=== PATIENT | male | born 1965 | race Caucasian/White ===

== ENCOUNTER 2019-02-10 23:32 | Observation (INO) ==
--- NOTE | 2019-02-10 23:50 | Emergency Department Note ---
Disposition Clinical Impression: Atrial fibrillation with RVR Disposition: Admitted As Inpatient Condition: Good Time of Disposition: 06:14 General Adult HPI - General Chief complaint: ED Chest Pain Stated complaint: CP Time Seen by Provider: 02/10/19 23:46 Source: patient Limitations: no limitations - History of Present Illness Pain Scale: 9 - Related Data Allergies Allergy/AdvReac Type Severity Reaction Status Date / Time Penicillins Allergy Hives Verified 02/11/19 00:15 Past Medical History - Past Medical History Medical history: Reports: hypertension Psychiatric history: Reports: no psych history - Social History Smoking Status: Current every day smoker Smokeless Tobacco Status: No Alcohol use: Reports: heavy Drug use: Reports: none Physical Exam - General Limitations: no limitations General appearance: alert, anxious Course Vital Signs Temperature 98.2 F 02/10/19 23:34 Pulse Rate 97 02/10/19 23:34 Respiratory Rate 22 02/10/19 23:34 Blood Pressure 118/76 02/10/19 23:34 O2 Sat by Pulse Oximetry 98 02/10/19 23:34 Temperature 98.2 F 02/10/19 23:34 Pulse Rate 129 02/11/19 02:41 Respiratory Rate 18 02/11/19 06:01 Blood Pressure 143/92 02/11/19 06:01 O2 Sat by Pulse Oximetry 98 02/11/19 01:26 Oxygen Delivery Oxygen Delivery Room Air Medical Decision Making - Lab Data Result diagrams: 02/11/19 00:00 02/11/19 00:00 Lab Results 02/11/19 02/11/19 02/11/19 Range/Units 00:00 00:00 00:00 WBC 10.9 (4.3-11.1) K/mcL RBC 4.86 (4.19-5.50) M/mcL Hgb 17.5 H (12.9-16.9) g/dL Hct 47.7 (37.5-50.1) % MCV 98.1 (83.0-100.0) fL MCH 36.0 H (28.0-33.3) pg MCHC 36.7 H (31.6-35.5) g/dL RDW 12.1 (11.5-14.5) % Plt Count 186 (140-400) K/mcL MPV 9.9 (9.4-12.4) fL Immature Gran % 0.4 (0-4) % Seg Neutrophils % 77.4 % Lymphocytes % 12.0 % Monocytes % 8.9 % Eosinophils % 0.2 % Basophils % 1.1 % Neutrophils # 8.4 (1.6-8.9) K/mcL Lymphocytes # 1.3 (0.6-4.6) K/mcL Monocytes # 1.0 (0.0-1.3) K/mcL Eosinophils # 0.0 (0.0-0.6) K/mcL Basophils # 0.1 (0.0-0.2) K/mcL PT 10.9 (9.4-12.1) Seconds INR 1.0 D-Dimer 563 H (0-500) ng/mLFEU Heparin Anti-Xa, Unfract (0.30-0.70) IU/mL Sodium 134 L (136-145) mEq/L Potassium 3.6 (3.5-5.1) mEq/L Chloride 96 L (98-107) mEq/L Carbon Dioxide 19 L (23-29) mEq/L BUN 7 (6-20) mg/dL Creatinine 0.69 L (0.70-1.30) mg/dL Est GFR ( Amer) > 60 (> 60) Est GFR (Non-Af Amer) > 60 (> 60) BUN/Creatinine Ratio 10 (6-26) Glucose 166 H (70-105) mg/dL Calculated Osmolality 280 (280-300) Calcium 9.8 (8.6-10.3) mg/dL Magnesium 1.3 L (1.6-2.6) mg/dL Total Bilirubin 1.7 H (0.3-1.0) mg/dL AST 102 H (13-39) Units/L ALT 51 (7-52) Units/L Alkaline Phosphatase 90 (34-104) Units/L Troponin I 0.03 (< 0.04) ng/mL Serum Total Protein 7.6 (6.4-8.9) g/dL Albumin 4.4 (3.5-5.7) g/dL Globulin 3.2 (2.4-3.5) g/dL Albumin/Globulin Ratio 1.4 (1.1-2.2) TSH (0.340-5.600) mcIU/mL Specimen Rejected 02/11/19 02/11/1902/11/19 Range/Units 03:11 03:31 03:31 WBC (4.3-11.1) K/mcL RBC (4.19-5.50) M/mcL Hgb (12.9-16.9) g/dL Hct (37.5-50.1) % MCV (83.0-100.0) fL MCH (28.0-33.3) pg MCHC (31.6-35.5) g/dL RDW (11.5-14.5) % Plt Count (140-400) K/mcL MPV (9.4-12.4) fL Immature Gran % (0-4) % Seg Neutrophils % % Lymphocytes % % Monocytes % % Eosinophils % % Basophils % % Neutrophils # (1.6-8.9) K/mcL Lymphocytes # (0.6-4.6) K/mcL Monocytes # (0.0-1.3) K/mcL Eosinophils # (0.0-0.6) K/mcL Basophils # (0.0-0.2) K/mcL PT 10.8 (9.4-12.1) Seconds INR 1.0 D-Dimer (0-500) ng/mLFEU Heparin Anti-Xa, Unfract 0.05 L (0.30-0.70) IU/mL Sodium (136-145) mEq/L Potassium (3.5-5.1) mEq/L Chloride (98-107) mEq/L Carbon Dioxide (23-29) mEq/L BUN (6-20) mg/dL Creatinine (0.70-1.30) mg/dL Est GFR ( Amer) (> 60) Est GFR (Non-Af Amer) (> 60) BUN/Creatinine Ratio (6-26) Glucose (70-105) mg/dL Calculated Osmolality (280-300) Calcium (8.6-10.3) mg/dL Magnesium (1.6-2.6) mg/dL Total Bilirubin (0.3-1.0) mg/dL AST (13-39) Units/L ALT (7-52) Units/L Alkaline Phosphatase (34-104) Units/L Troponin I (< 0.04) ng/mL Serum Total Protein (6.4-8.9) g/dL Albumin (3.5-5.7) g/dL Globulin (2.4-3.5) g/dL Albumin/Globulin Ratio (1.1-2.2) TSH 2.007 (0.340-5.600) mcIU/mL Specimen Rejected MCV Delta Critical Care Time Critical Care Time: Yes Total Critical Care Time: 30 Attestation: The high probability of a clinically significant, sudden or life threatening deterioration of the [] system(s) required my full and direct attention, intervention and personal management. The aggregate critical care time was [] minutes. This time is in addition to time spent performing reported procedures but includes the following: [] Data Review and interpretation [] Patient assessment and monitoring of vital signs [] Documentation [] Medication orders and management Attestation Statement - Attestation Attestation: I reviewed the residents documentation and agree with the residents assessment and plan of care. I have personally had face to face time with the patient. (Brief History, Brief Exam, and MDM) I personally supervised and was present for the kurtz/critical portions of the following procedures completed by the resident: (add procedures performed here). [id number] time provided I attest to supervising the resident physician's interpretation of ECG Patient arrives complaining of chest pain described as a heaviness across his chest over the past 45 minutes. He does admit to drinking alcohol intermittently heavily but states he does not feel as if he is withdrawing from alcohol. His ECG at triage shows a narrow complex tachycardia which is irregularly irregular.
--- NOTE | 2019-02-11 00:04 | Emergency Department Note ---
Disposition Clinical Impression: Atrial fibrillation with RVR Disposition: Admitted As Inpatient Condition: Good Time of Disposition: 03:27 General Adult HPI - General Chief complaint: ED Chest Pain Stated complaint: CP Time Seen by Provider: 02/10/19 23:46 Source: patient Limitations: no limitations Nursing Notes Reviewed: Yes Vital Signs Reviewed: Yes - History of Present Illness HPI Narrative: Patient is a 53-year-old male who is presenting with chest pain and tightness for the last 2 hours. States that he was sitting on his bed at home at the time. Chest pain is in the center of his chest and is described as a strong fracture. Pain does not radiate anywhere else. Patient has not tried any medications to help with the pain. Patient has been diaphoretic. Does not worsen with exertion. He endorses nausea but no vomiting. Patient is a alcoholic and drinks about a half of a fifth of vodka a day. Last drink was roughly a day ago. Never been in withdrawal before. No history of arrhythmias in the past. Pain Scale: 9 - Related Data Allergies Allergy/AdvReac Type Severity Reaction Status Date / Time Penicillins Allergy Hives Verified 02/11/19 00:15 All systems ED: reviewed and negative except as stated. Review of Systems: As Per HPI Constitutional: Denies: fever, chills, weakness Eyes: Denies: eye pain, eye discharge, vision change ENT ED: Denies: ear pain, throat pain, dental pain Cardiovascular: Reports: chest pain, palpitations. Denies: dyspnea on exertion Respiratory: Denies: cough, dyspnea, wheezes Gastrointestinal: Denies: abdominal pain, nausea, vomiting Genitourinary: Denies: urgency, dysuria, frequency Musculoskeletal: Denies: back pain, neck pain, joint swelling Integumentary: Denies: rash, abrasion, lesions Neurological: Denies: headache, weakness, numbness Psychiatric: Denies: anxiety, depression, suicidal thoughts Endocrine: Denies: fatigue, heat or cold intolerance, polydipsia Past Medical History - Past Medical History Attestation: Yes The following information was validated with the patient. Source: patient Medical history: Reports: hypertension Psychiatric history: Reports: no psych history - Social History Smoking Status: Current every day smoker Smokeless Tobacco Status: No Alcohol use: Reports: heavy Drug use: Reports: none Physical Exam GEN: Nephrotic, moderate distress, conversant. HEENT: NC, AT. MMM. EOMI, clear conjunctiva, oropharynx clear. NECK: Supple without lymphadenopathy. No stiffness or restricted ROM. HEART: Tachycardic rate and irregular rhythm, normal S1/S1, no m/r/g LUNGS: CTAB, moving air well. No crackles or wheezes are heard. ABDOMEN: Soft, nontender, nondistended with good bowel sounds heard. BACK: No CVAT, no obvious deformity. EXTREMITIES: Without cyanosis, clubbing or edema. NEUROLOGICAL: Grossly nonfocal. Alert and oriented, moving all 4 extremities. CN not formally tested but appear grossly intact. Observed to ambulate with normal gait. Skin: Warm and dry without any rash. - General Limitations: no limitations General appearance: alert, anxious Course Course Narrative: He was seen and examined. Labs are ordered. EKG and chest x-ray. Started on Cardizem drip. Vital Signs Temperature 98.2 F 02/10/19 23:34 Pulse Rate 97 02/10/19 23:34 Respiratory Rate 22 02/10/19 23:34 Blood Pressure 118/76 02/10/19 23:34 O2 Sat by Pulse Oximetry 98 02/10/19 23:34 Temperature 98.2 F 02/10/19 23:34 Pulse Rate 129 02/11/19 02:41 Respiratory Rate 18 02/11/19 02:41 Blood Pressure 140/82 02/11/19 02:41 O2 Sat by Pulse Oximetry 98 02/11/19 01:26 Oxygen Delivery Oxygen Delivery Room Air Medical Decision Making - [facility] Narrative Medical decision making narrative: Patient is a 53-year-old male who presents with A. fib with RVR. Differential for etiologies include infection, ischemia, alcohol use, alcohol withdrawal, hyperthyroidism. Patient initially was in A. fib with RVR with a rate of 170. Patient was rate controlled with a Cardizem drip was titrated to a rate of 10 mg/h. Rate decreased to 1:30 to 140s. Patient was then given Lopressor which brought her rate down to 90s to 100s. Throughout the duration of stay patient has been stable with no hypotension. Labs remarkable for a d-dimer of 563. A C T PE was performed which showed no evidence of blood clot. He had a normal troponin and no ischemic changes on EKG. Low suspicion for cardiac ischemia. Patient does endorse drinking heavily, last drink was approximately 24 hours ago. Has never been in withdrawal, however cannot be ruled out as possible etiology for A. fib. Patient has no signs of infection, he does not have a white count, normal chest x-ray. A TSH was ordered for possible hyperthyroidism. Plan is to admit patient for further management and evaluation. Patient was accepted by the hospitalist for admission. Potassium and magnesium was repleted. Low-dose heparin drip was started for anticoagulation. - Medical Records Medical records reviewed: Yes I reviewed the patient's medical records. - Lab Data Lab results reviewed: Yes I reviewed the patient's lab results. Result diagrams: 02/11/19 00:00 02/11/19 00:00 Lab Results 02/11/19 02/11/19 02/11/19 Range/Units 00:00 00:00 00:00 WBC 10.9 (4.3-11.1) K/mcL RBC 4.86 (4.19-5.50) M/mcL Hgb 17.5 H (12.9-16.9) g/dL Hct 47.7 (37.5-50.1) % MCV 98.1 (83.0-100.0) fL MCH 36.0 H (28.0-33.3) pg MCHC 36.7 H (31.6-35.5) g/dL RDW 12.1 (11.5-14.5) % Plt Count 186 (140-400) K/mcL MPV 9.9 (9.4-12.4) fL Immature Gran % 0.4 (0-4) % Seg Neutrophils % 77.4 % Lymphocytes % 12.0 % Monocytes % 8.9 % Eosinophils % 0.2 % Basophils % 1.1 % Neutrophils # 8.4 (1.6-8.9) K/mcL Lymphocytes # 1.3 (0.6-4.6) K/mcL Monocytes # 1.0 (0.0-1.3) K/mcL Eosinophils # 0.0 (0.0-0.6) K/mcL Basophils # 0.1 (0.0-0.2) K/mcL PT 10.9 (9.4-12.1) Seconds INR 1.0 D-Dimer 563 H (0-500) ng/mLFEU Sodium 134 L (136-145) mEq/L Potassium 3.6 (3.5-5.1) mEq/L Chloride 96 L (98-107) mEq/L Carbon Dioxide 19 L (23-29) mEq/L BUN 7 (6-20) mg/dL Creatinine 0.69 L (0.70-1.30) mg/dL Est GFR ( Amer) > 60 (> 60) Est GFR (Non-Af Amer) > 60 (> 60) BUN/Creatinine Ratio 10 (6-26) Glucose 166 H (70-105) mg/dL Calculated Osmolality 280 (280-300) Calcium 9.8 (8.6-10.3) mg/dL Magnesium 1.3 L (1.6-2.6) mg/dL Total Bilirubin 1.7 H (0.3-1.0) mg/dL AST 102 H (13-39) Units/L ALT 51 (7-52) Units/L Alkaline Phosphatase 90 (34-104) Units/L Troponin I 0.03 (< 0.04) ng/mL Serum Total Protein 7.6 (6.4-8.9) g/dL Albumin 4.4 (3.5-5.7) g/dL Globulin 3.2 (2.4-3.5) g/dL Albumin/Globulin Ratio 1.4 (1.1-2.2) Specimen Rejected 02/11/19 Range/Units 03:11 WBC (4.3-11.1) K/mcL RBC (4.19-5.50) M/mcL Hgb (12.9-16.9) g/dL Hct (37.5-50.1) % MCV (83.0-100.0) fL MCH (28.0-33.3) pg MCHC (31.6-35.5) g/dL RDW (11.5-14.5) % Plt Count (140-400) K/mcL MPV (9.4-12.4) fL Immature Gran % (0-4) % Seg Neutrophils % % Lymphocytes % % Monocytes % % Eosinophils % % Basophils % % Neutrophils # (1.6-8.9) K/mcL Lymphocytes # (0.6-4.6) K/mcL Monocytes # (0.0-1.3) K/mcL Eosinophils # (0.0-0.6) K/mcL Basophils # (0.0-0.2) K/mcL PT (9.4-12.1) Seconds INR D-Dimer (0-500) ng/mLFEU Sodium (136-145) mEq/L Potassium (3.5-5.1) mEq/L Chloride (98-107) mEq/L Carbon Dioxide (23-29) mEq/L BUN (6-20) mg/dL Creatinine (0.70-1.30) mg/dL Est GFR ( Amer) (> 60) Est GFR (Non-Af Amer) (> 60) BUN/Creatinine Ratio (6-26) Glucose (70-105) mg/dL Calculated Osmolality (280-300) Calcium (8.6-10.3) mg/dL Magnesium (1.6-2.6) mg/dL Total Bilirubin (0.3-1.0) mg/dL AST (13-39) Units/L ALT (7-52) Units/L Alkaline Phosphatase (34-104) Units/L Troponin I (< 0.04) ng/mL Serum Total Protein (6.4-8.9) g/dL Albumin (3.5-5.7) g/dL Globulin (2.4-3.5) g/dL Albumin/Globulin Ratio (1.1-2.2) Specimen Rejected MCV Delta - Radiology Data Radiology results reviewed: Yes I reviewed the patient's radiology results. - EKG Data EKG #1 EKG attestation: Yes I reviewed and interpreted this EKG. EKG results narrative: EKG #1 was obtained at 2338. Interpretation of the EKG shows atrial fibrillation with rapid ventricular response. A ventricular rate of 167. Normal axis. No ST depressions or elevations. No T-wave inversions. No prior EKG available for comparison. EKG #2 was obtained at 2358. Rotation of the EKG again shows redemonstration of atrial fibrillation with RVR. Ventricular rate of 166. No ST depressions or elevations. No T-wave inversions.
[2019-02-11 00:29] LABS: Basophils # 0.1 K/mcL (0.0-0.2); Basophils % 1.1 %; Eosinophils % 0.2 %; Hematocrit 47.7 % (37.5-50.1); Hemoglobin 17.5 g/dL (12.9-16.9); Immature Granulocytes % 0.4 % (0-4); Lymphocytes # 1.3 K/mcL (0.6-4.6); Mean Corpuscular HGB Conc 36.7 g/dL (31.6-35.5); Mean Corpuscular Volume 98.1 fL (83.0-100.0); Mean Platelet Volume 9.9 fL (9.4-12.4); Monocytes % 8.9 %; Neutrophils # 8.4 K/mcL (1.6-8.9); Platelet Count 186 K/mcL (140-400); Red Blood Count 4.86 M/mcL (4.19-5.50); Red Cell Distribution Width 12.1 % (11.5-14.5); Segmented Neutrophils % 77.4 %; White Blood Count 10.9 K/mcL (4.3-11.1)
[2019-02-11 00:38] LABS: Prothrombin Time 10.9 Seconds (9.4-12.1)
[2019-02-11 00:47] LABS: Alanine Aminotransferase 51 Units/L (7-52); Albumin 4.4 g/dL (3.5-5.7); Albumin/Globulin Ratio 1.4 (1.1-2.2); Alkaline Phosphatase 90 Units/L (34-104); Aspartate Amino Transferase 102 Units/L (13-39); Bilirubin,Total 1.7 mg/dL (0.3-1.0); Blood Urea Nitrogen 7 mg/dL (6-20); Calcium 9.8 mg/dL (8.6-10.3); Carbon Dioxide 19 mEq/L (23-29); Chloride 96 mEq/L (98-107); Globulin 3.2 g/dL (2.4-3.5); Glucose 166 mg/dL (70-105); Magnesium 1.3 mg/dL (1.6-2.6); Osmolality,Calculated 280 (280-300); Potassium 3.6 mEq/L (3.5-5.1); Sodium 134 mEq/L (136-145); Total Protein 7.6 g/dL (6.4-8.9); Troponin I 0.03 ng/mL (< 0.04)
[2019-02-11 00:52] LABS: BUN/Creatinine Ratio 10 (6-26); eGFR For African Americans > 60 (> 60); eGFR For Non-African Americans > 60 (> 60)
[2019-02-11] MEDS ORDERED: Isovue-370 500 ML BOTTLE IVP ONE (00:56)
[2019-02-11] MEDS ORDERED: *HR* Metoprolol 5 MG/5 ML VIAL IVP ONE (02:02)
[2019-02-11] MEDS ORDERED: Nicotine 21 MG PATCH.TD24 TD ONE (02:54)
[2019-02-11] MEDS ORDERED: *HR* Heparin 5,000 UNIT/ML VIAL IVP PRN ×2 (03:11)
[2019-02-11] MEDS ORDERED: *HR* Heparin 5,000 UNIT/ML VIAL IVP ONE (03:11)
[2019-02-11 03:52] LABS: Heparin anti-factor XA UFH 0.05 IU/mL (0.30-0.70)
[2019-02-11 03:53] LABS: Prothrombin Time 10.8 Seconds (9.4-12.1)
[2019-02-11] MEDS: Heparin 25,000 UNIT/250 ML D5W 25,000 UNIT/250 ML IV.SOLN IVC SCH (05:20)
[2019-02-11 06:45] LABS: Hematocrit 43.9 % (37.5-50.1); Hemoglobin 15.8 g/dL (12.9-16.9); Mean Corpuscular Hemoglobin 36.3 pg (28.0-33.3); Mean Corpuscular Volume 100.9 fL (83.0-100.0); Mean Platelet Volume 9.7 fL (9.4-12.4); Platelet Count 174 K/mcL (140-400); Red Blood Count 4.35 M/mcL (4.19-5.50); Red Cell Distribution Width 12.2 % (11.5-14.5); White Blood Count 9.7 K/mcL (4.3-11.1)
--- NOTE | 2019-02-11 07:53 | Internal Med History&Physical ---
Date of Encounter: 02/11/19 Time of Encounter: 07:50 Internal Medicine - H&P: HPI Chief complaint: chest pain Admitted From: Home Plans for Post Hospital Care: Home History of present illness: Mr. Millard is a 53 year old male with past medical history of hypertension, heavy alcohol use came in with chest pain that lasted for about 2 hours started yesterday. Patient was resting and watching TV was started. Precordial in location nonradiating. Associated palpitations. Characterized as severe intensity. Denies any lightheadedness or dizziness but had some nausea denies any vomiting or sweating. Denies any history of heart attacks in past. Patient admits to using marijuana and has heavy alcohol use but denies any cocaine or amphetamine use or any illicit drug use. Denies any previous similar episode. No significant cardiac history in family practice knowledge. He smokes about a pack a day for the last 40-45 years. Denies history of withdrawal from alcohol when he was off alcohol for about a week last month. Denies any cough, fevers, chills, abdominal pain, back pain bowel or bladder complaints. Patient was evaluated the ER. CTA chest because of elevated d-dimer which was negative for PE or pneumonia. EKG showed atrial fibrillation with RVR with some ST depression. 1st Troponin were negative. Patient was evaluated on the floor. He denied any chest pain. Wanted to eat. Denies any cough, shortness of breath, abdominal pain or back pain. Currently on Cardizem and heparin drip Past Med Surg Social Fam HX - Past Medical History Medical history: hypertension Psychiatric history: no psych history - Past Surgical History Surgical History: no surgical history - Social History Smoking Status: Current every day smoker Packs per day: 1 ppd Smokeless Tobacco Status: No Alcohol use: heavy Drug use: marijuana - Family History Mother Name: Valerie Living Status: Age at : 72 Cause of : rectal cancer Hx Family Cardiac Disorders: No Hx Family Respiratory Disorders: Yes (maternal grandpa emphysema) Hx Family Cancer: Yes (rectal cancer) Hx Family GI Disorders: No Hx Family Genitourinary Disorders: No Hx Family Endocrine Disorder: No Hx Family Musculoskeletal Disorders: No Hx Family Neuromuscular Disorders: No Hx Family Neurologic Disorders: No Hx Family HEENT Disorders: No Hx Family Autoimmune Disorders: No Hx Family Reproductive Disorders: No Hx Family Psychosocial Disorders: No Hx Family Medical Disorders: No Internal Medicine - H&P: Meds Allergy/AdvReac Type Severity Reaction Status Date / Time Penicillins Allergy Hives Verified 02/11/19 00:15 All Systems PM: A 10-system review of systems was performed and is negative for pertinent findings except as documented above in the HPI. - Constitutional Vitals: Temp Pulse Resp BP Pulse Ox 98.3 F 103 12 138/83 96 02/11/19 06:37 02/11/19 06:37 02/11/19 06:37 02/11/19 06:37 02/11/19 06:37 Exam: Constitutional: Vitals as noted. Conversant. No Apparent Distress. Well groomed. No obvious deformities. Eyes : Sclera white, conjunctiva clear, no lid lag, PEARLA. ENT : Grossly normal hearing. Oropharyngeal exam unremarkable. Moist mucus membranes. No JVD, no cervical lymphadenopathy. no thyromegaly or mass. Respiratory : Clear to auscultation bilaterally. No accessory muscle use, rales, rhonchi or wheezes Cardiovascular : tachycardic, irregular, no murmur, gallop, rubs. No chest wall tenderness GI/Abdominal : Soft, Non-tender, Non-distended, normal bowel sounds, no peritoneal signs. no orgenomegaly or mass appreciated. no hernia. Musculoskeletal: no deformity noted. no edema or cyanosis. warm extremities, pulses palpable and symmetrical in UE/LE. no calf tenderness. Neurological: AO X3, CN II-XII grossly intact, grossly normal motor and sensory exam. Skin: No skin rash, lesions or ulcers noted. Internal Med - H&P Results - Labs CBC & Chem 7: 02/11/19 06:34 02/11/19 00:00 Labs: Short CBC 02/11/19 02/11/19 Range/Units 00:00 06:34 WBC 10.9 9.7 (4.3-11.1) K/mcL Hgb 17.5 H 15.8 D (12.9-16.9) g/dL Hct 47.7 43.9 (37.5-50.1) % Plt Count 186 174 (140-400) K/mcL Neutrophils # 8.4 (1.6-8.9) K/mcL BMP 02/11/19 00:00 Sodium 134 L Potassium 3.6 Chloride 96 L Carbon Dioxide 19 L BUN 7 Creatinine 0.69 L Glucose 166 H Calcium 9.8 Cardiac Enzymes 02/11/19 Range/Units 00:00 Troponin I 0.03 (< 0.04) ng/mL Liver Function 02/11/19 Range/Units 00:00 Total Bilirubin 1.7 H (0.3-1.0) mg/dL AST 102 H (13-39) Units/L ALT 51 (7-52) Units/L Alkaline Phosphatase 90 (34-104) Units/L Albumin 4.4 (3.5-5.7) g/dL - EKG Data -: EKG Interpreted by Myself (afib with rvr, ST depression in lateral leads) - Impressions ITS Impressions Chest CTA 02/11/19 00:56 IMPRESSION: No evidence of pulmonary embolism or acute pulmonary abnormality. D/ / Zachariah Rodriguez MD / Zachariah Rodriguez MD Interpreting Provider: Zachariah Rodriguez MD Chest X-Ray 02/11/19 23:48 IMPRESSION: Mild volume overload. D/ / Karl Park / Karl Park Interpreting Provider: Karl Park - Assessment and Plan (1) Atrial fibrillation with RVR Current Visit: Yes Status: Acute Assessment and plan: Patient has new onset A. fib likely related to alcohol use. TSH normal. Continue patient on Cardizem drip. He was started on heparin drip. We will continue for now. Likely will not need long-term anticoagulation. Await echocardiogram. Patient currently appears only one risk factor of hypertension. We will obtain A1c given some hyperglycemia and follow-up echocardiogram report. We will consult cardiology. (2) AA (alcohol abuse) Current Visit: Yes Status: Acute Assessment and plan: We will give thiamine IV and multivitamin Keep patient on CIWA protocol with lorazepam and monitor for withdrawals. (3) Marijuana abuse Current Visit: Yes Status: Acute (4) DVT prophylaxis Current Visit: Yes Status: Acute Assessment and plan: Currently on heparin drip. - Time Spent With Patient Total time spent is greater than 50% in coordination of care (as documented) at patient's floor/unit and/or counseling patient:
[2019-02-11] MEDS ORDERED: *HR* Metoprolol 5 MG/5 ML VIAL IVP PRN (08:21)
[2019-02-11] MEDS ORDERED: Thiamine (B-1) 100 MG in D5% in Water 50 ML IVPB STA (08:28)
[2019-02-11] MEDS ORDERED: *HR* LORazepam 2 MG/ML VIAL IVP PRN (08:31)
[2019-02-11 09:00] LABS: Estimated Average Glucose 128 mg/dl
[2019-02-11] MEDS: Multivit/Ca/Min/Fe/FA 1 TAB TABLET PO SCH (09:25)
--- NOTE | 2019-02-11 11:07 | Cardiology Consult Note ---
<Scott Morrell R - Last Filed: 02/11/19 11:02> Date of Encounter: 02/11/19 Time of Encounter: 11:02 Assessment and Plan (1) Atrial fibrillation with RVR Current Visit: Yes Status: Acute Presented with precordial chest pain and palpitations. Found to be in A-Fib RVR, new diagnosis. Currently on heparin gtt and Cardizem gtt at 12.5mg/hr. HR 100s. BP tolerating/hypertensive. Will add PO BB. [id number] 1 for HTN. Continue heparin gtt for now until TTE results to evaluate EF. (2) Elevated troponin Current Visit: Yes Status: Acute Initial troponin negative, then 0.19. Will check another troponin to determine trend. Troponin elevation in setting of A-Fib RVR. NSTEMI vs. Demand ischemia. Continue heparin gtt. TTE to evaluate structure and function. Further recs pending TTE results. (3) AA (alcohol abuse) Current Visit: Yes Status: Acute Management per primary team. Discussion w patient/family: The assessment and plan as outlined above was discussed with the patient and/or family members who expressed understanding and agreement. All questions were answered. Thank you for involving us in the care of your patient. Please call with any questions. I will discuss all the above with Dr. Resendez and make changes as necessary. History of Present Illness Consult date: 02/11/19 Consult reason: A-Fib RVR, elevated troponin Chief complaint: Palpitations History of present illness: Mr. Millard is a 53 year old male with PMH of hypertension, heavy alcohol use came in with chest pain that lasted for about 2 hours started yesterday. Patient was resting and watching TV was started. Precordial in location nonradiating with associated palpitations. Admites to marijuana and drinking a quarter of a fifth of liquor per day. He smokes 1PPD for the last 40-45 years. CTA chest negative for PE or pneumonia. EKG showed atrial fibrillation with RVR with some ST depression. 1st Troponin were negative, then 0.19. Cardiology consulted for further recs. Currently on heparin gtt and Cardizem gtt at 12.5mg/hr. HR 100s. Past Med Surg Social Fam HX - Past Medical History Medical history: hypertension Psychiatric history: no psych history - Past Surgical History Surgical History: no surgical history - Social History Smoking Status: Current every day smoker Packs per day: 1 ppd Smokeless Tobacco Status: No Alcohol use: heavy Drug use: marijuana - Family History Mother Name: Valerie Living Status: Age at : 72 Cause of : rectal cancer Hx Family Cardiac Disorders: No Hx Family Respiratory Disorders: Yes (maternal grandpa emphysema) Hx Family Cancer: Yes (rectal cancer) Hx Family GI Disorders: No Hx Family Genitourinary Disorders: No Hx Family Endocrine Disorder: No Hx Family Musculoskeletal Disorders: No Hx Family Neuromuscular Disorders: No Hx Family Neurologic Disorders: No Hx Family HEENT Disorders: No Hx Family Autoimmune Disorders: No Hx Family Reproductive Disorders: No Hx Family Psychosocial Disorders: No Hx Family Medical Disorders: No Medications and Allergies Allergy/AdvReac Type Severity Reaction Status Date / Time Penicillins Allergy Hives Verified 02/11/19 00:15 All Systems Review: The remainder of the systems were reviewed and are negative - Cardiovascular Cardiovascular: as per HPI, chest pain at rest, palpitations Physical Examination Vital Signs Temp Pulse Resp BP Pulse Ox 02/11/19 06:37 98.3 F 103 12 138/83 96 02/11/19 06:01 18 143/92 02/11/19 02:41 129 18 140/82 02/11/19 01:26 157 20 138/86 98 02/11/19 00:36 152 20 138/80 96 02/10/19 23:34 98.2 F 97 22 118/76 98 Intake and Output 02/10/19 02/11/19 02/11/19 23:59 07:59 15:59 Intake Total 204 / 733.0 529.0 / 733.0 Output Total 0 / 0 0 / 0 Balance 204 / 733.0 529.0 / 733.0 Intake: IV Fluids 204 / 253.0 49.0 / 253.0 Cardizem 125 MG In 0.9 % Sodium 49.0 / 49.0 Chloride 100 ML @ 5 MG/HR 5 mls/hr IVC CONT CHRISTIN Rx#: [id number] Magnesium Sulfate 1 GM In 0.9 % 204 / 204 Sodium Chloride 100 ML @ 100 mls/hr IVPB ONCE ONE Rx#: [id number] Oral 0 / 480 480 / 480 Output: Urine 0 / 0 0 / 0 Other: Meal Breakfast Percent of Meal Consumed 25% Weight 82.1 kg 74.1 kg Patient Weight 02/11/19 23:59 Weight 74.1 kg General: Conversant, No Apparent Distress HEENT: Atraumatic, Normocephaly, Mucus Membranes Moist Neck: No JVD, Normal carotid pulses Cardiac: Other (irregularly irregular rhythm) Lungs: Normal Breath Sounds, No Wheeze, Rales, Rhonchi Neuro: Alert and responsive, No focal deficits noted Abdomen: Soft, Non-Tender Skin: No rashes noted on visualized skin Musculoskeletal: No Chest Wall Tenderness Extremities: No Clubbing, No Cyanosis, No Edema, Normal Pulses Results 02/11/19 06:34 02/11/19 00:00 Lab Results 02/11/19 02/11/19 02/11/19 00:00 00:00 00:00 WBC 10.9 Hgb 17.5 H Hct 47.7 Plt Count 186 INR 1.0 D-Dimer 563 H Sodium 134 L Potassium 3.6 Chloride 96 L Carbon Dioxide 19 L BUN 7 Creatinine 0.69 L Glucose 166 H Calcium 9.8 Magnesium 1.3 L Total Bilirubin 1.7 H AST 102 H ALT 51 Alkaline Phosphatase 90 Troponin I 0.03 TSH 02/11/19 02/11/19 02/11/19 03:31 03:31 06:34 WBC 9.7 Hgb 15.8 D Hct 43.9 Plt Count 174 INR 1.0 D-Dimer Sodium Potassium Chloride Carbon Dioxide BUN Creatinine Glucose Calcium Magnesium Total Bilirubin AST ALT Alkaline Phosphatase Troponin I TSH 2.007 02/11/19 08:31 WBC Hgb Hct Plt Count INR D-Dimer Sodium Potassium Chloride Carbon Dioxide BUN Creatinine Glucose Calcium Magnesium Total Bilirubin AST ALT Alkaline Phosphatase Troponin I 0.19 H* TSH Short CBC 02/11/19 02/11/19 Range/Units 06:34 00:00 WBC 9.7 10.9 (4.3-11.1) K/mcL Hgb 15.8 D 17.5 H (12.9-16.9) g/dL Hct 43.9 47.7 (37.5-50.1) % Plt Count 174 186 (140-400) K/mcL Neutrophils # 8.4 (1.6-8.9) K/mcL BMP 02/11/19 Range/Units 00:00 Sodium 134 L (136-145) mEq/L Potassium 3.6 (3.5-5.1) mEq/L Chloride 96 L (98-107) mEq/L Carbon Dioxide 19 L (23-29) mEq/L BUN 7 (6-20) mg/dL Creatinine 0.69 L (0.70-1.30) mg/dL Glucose 166 H (70-105) mg/dL Calcium 9.8 (8.6-10.3) mg/dL Cardiac Enzymes 02/11/19 02/11/19 Range/Units 08:31 00:00 Troponin I 0.19 H* 0.03 (< 0.04) ng/mL Liver Function 02/11/19 Range/Units 00:00 Total Bilirubin 1.7 H (0.3-1.0) mg/dL AST 102 H (13-39) Units/L ALT 51 (7-52) Units/L Alkaline Phosphatase 90 (34-104) Units/L Albumin 4.4 (3.5-5.7) g/dL Impressions Chest CTA 02/11/19 00:56 IMPRESSION: No evidence of pulmonary embolism or acute pulmonary abnormality. D/ / Zachariah Rodriguez MD / Zachariah Rodriguez MD Interpreting Provider: Zachariah Rodriguez MD Chest X-Ray 02/11/19 23:48 IMPRESSION: Mild volume overload. D/ / Karl Park / Karl Park Interpreting Provider: Karl Park Active Medications Heparin Sodium (Porcine) (Heparin) 4,000 unit IVP Q6HR PRN PRN Reason: SEE COMMENTS Stop: 08/13/19 03:12 Heparin Sodium (Porcine) (Heparin) 2,000 unit IVP Q6H PRN PRN Reason: SEE COMMENTS Stop: 08/13/19 03:12 Heparin Sodium/Dextrose (Heparin 25,000 Unit/250 Ml D5w) 25,000 unit in 250 mls @ 9.852 mls/hr IVC .Q24H CHRISTIN; Protocol Stop: 08/13/19 03:16 Last Admin: 02/11/19 05:20 Dose: 12 unit/kg/hr, 9.9 mls/hr Documented by: Diltiazem HCl 125 mg/ Sodium (Chloride) 125 mls @ 5 mls/hr IVC CONT CHRISTIN; Protocol Stop: 08/12/19 23:46 Last Infusion: 02/11/19 10:18 Dose: 12.5 mg/hr, 12.5 mls/hr Documented by: Lorazepam (Ativan) 1 mg IVP Q1H PRN PRN Reason: Alcohol Withdrawal Stop: 08/13/19 08:32 Metoprolol Tartrate (Lopressor) 5 mg IVP Q6HR PRN PRN Reason: Heart Rate- High Stop: 08/13/19 08:22 Multivitamins/Calcium (Thera M Plus) 1 tab PO DAILY CHRISTIN; Protocol Stop: 08/13/19 09:01 Last Admin: 02/11/19 09:25 Dose: 1 tab Documented by: - Imaging and Cardiology Echo: pending - EKG Interpretation EKG results cardiology: personally reviewed (A-Fib RVR), other (12 hr tele AVG HR 112, A-Fib) Consult Discharge Plan - Plan Referrals: NONE,PCP [Primary Care Provider] - <Inge Resendez - Last Filed: 02/11/19 15:32> Date of Encounter: 02/11/19 - Attending Attestation I examined this patient and my medical decision-making was reviewed with the INSIDE BARREL LATHE OPERATOR. I agree with the documented findings, disposition and treatment plan as described. Assessment and Plan Discussion w patient/family: The assessment and plan as outlined above was discussed with the patient and/or family members who expressed understanding and agreement. All questions were answered. Thank you for involving us in the care of your patient. Please call with any questions. History of Present Illness History of present illness: Mr. Millard is a 53 year old male All Systems Review: The remainder of the systems were reviewed and are negative Physical Examination Vital Signs, Last 4 Hours Temp Pulse Resp BP Pulse Ox 02/11/19 12:00 98.7 F 100 14 141/90 96 Results 02/11/19 06:34 02/11/19 00:00 Lab Results 02/11/19 02/11/19 02/11/19 00:00 00:00 00:00 WBC 10.9 Hgb 17.5 H Hct 47.7 Plt Count 186 INR 1.0 D-Dimer 563 H Sodium 134 L Potassium 3.6 Chloride 96 L Carbon Dioxide 19 L BUN 7 Creatinine 0.69 L Glucose 166 H Calcium 9.8 Magnesium 1.3 L Total Bilirubin 1.7 H AST 102 H ALT 51 Alkaline Phosphatase 90 Troponin I 0.03 TSH 02/11/19 02/11/19 02/11/19 03:31 03:31 06:34 WBC 9.7 Hgb 15.8 D Hct 43.9 Plt Count 174 INR 1.0 D-Dimer Sodium Potassium Chloride Carbon Dioxide BUN Creatinine Glucose Calcium Magnesium Total Bilirubin AST ALT Alkaline Phosphatase Troponin I TSH 2.007 02/11/19 02/11/19 08:31 13:52 WBC Hgb Hct Plt Count INR D-Dimer Sodium Potassium Chloride Carbon Dioxide BUN Creatinine Glucose Calcium Magnesium Total Bilirubin AST ALT Alkaline Phosphatase Troponin I 0.19 H* 0.17 H* TSH
[2019-02-11] MEDS ORDERED: Perflutren Lipid Microsphere 1.3 ML in 0.9 % Sodium Chloride 8.7 ML IVP ONE (15:03)
[2019-02-11] MEDS ORDERED: Perflutren Lipid Microsphere 2 ML VIAL ONE (15:05)
--- NOTE | 2019-02-11 16:44 | Electrocardiograph Report ---
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
[2019-02-12 02:17] LABS: Alanine Aminotransferase 36 Units/L (7-52); Albumin 3.9 g/dL (3.5-5.7); Albumin/Globulin Ratio 1.3 (1.1-2.2); Alkaline Phosphatase 74 Units/L (34-104); Aspartate Amino Transferase 56 Units/L (13-39); BUN/Creatinine Ratio 14 (6-26); Bilirubin,Total 0.8 mg/dL (0.3-1.0); Blood Urea Nitrogen 9 mg/dL (6-20); Calcium 9.2 mg/dL (8.6-10.3); Carbon Dioxide 26 mEq/L (23-29); Chloride 102 mEq/L (98-107); Globulin 2.9 g/dL (2.4-3.5); Glucose 124 mg/dL (70-105); Osmolality,Calculated 286 (280-300); Potassium 3.6 mEq/L (3.5-5.1); Sodium 138 mEq/L (136-145); Total Protein 6.8 g/dL (6.4-8.9); eGFR For African Americans > 60 (> 60); eGFR For Non-African Americans > 60 (> 60)
[2019-02-12 02:18] LABS: Magnesium 1.9 mg/dL (1.6-2.6)
[2019-02-12 02:22] LABS: Troponin I 0.1 ng/mL (< 0.04)
[2019-02-12] MEDS: Heparin 25,000 UNIT/250 ML D5W 25,000 UNIT/250 ML IV.SOLN IVC SCH (04:54)
[2019-02-12] MEDS ORDERED: Nicotine 21 MG PATCH.TD24 TD SCH (05:04)
[2019-02-12 07:15] VITALS: BP 141/98
[2019-02-12] MEDS ORDERED: Diltiazem CD (24hr) 240 MG CAPSULE PO SCH (09:00)
[2019-02-12] MEDS ORDERED: Aspirin 81 MG TAB.CHEW PO SCH (09:00)
--- NOTE | 2019-02-12 09:41 | Internal Med Progress Note ---
Hospitalist Progress Note - Encounter Date of Encounter: 02/12/19 Time of Encounter: 09:41 - Exam Vitals: Temp Pulse Resp BP Pulse Ox 98.4 F 96 16 141/98 94 02/12/19 07:13 02/12/19 07:13 02/12/19 07:13 02/12/19 07:13 02/12/19 07:13 - Assessment and Plan (1) Atrial fibrillation with RVR Current Visit: Yes Status: Acute (2) AA (alcohol abuse) Current Visit: Yes Status: Acute (3) Marijuana abuse Current Visit: Yes Status: Acute (4) DVT prophylaxis Current Visit: Yes Status: Acute - Time Spent with Patient Total time spent is greater than 50% in coordination of care (as documented) at patient's floor/unit and/or counseling patient: Internal Medicine: Result - Labs CBC & Chem 7: 02/11/19 06:34 02/12/19 01:30 Labs: BMP 02/12/19 01:30 Sodium 138 Potassium 3.6 Chloride 102 Carbon Dioxide 26 BUN 9 Creatinine 0.63 L Glucose 124 H Calcium 9.2 Cardiac Enzymes 02/11/19 02/12/19 Range/Units 13:52 01:30 Troponin I 0.17 H* 0.10 H* (< 0.04) ng/mL Liver Function 02/12/19 Range/Units 01:30 Total Bilirubin 0.8 (0.3-1.0) mg/dL AST 56 H (13-39) Units/L ALT 36 (7-52) Units/L Alkaline Phosphatase 74 (34-104) Units/L Albumin 3.9 (3.5-5.7) g/dL - ABG Interpretation ABG results: PT/INR, D-dimer PT 10.8 Seconds (9.4-12.1) 02/11/19 03:31 D-Dimer 563 ng/mLFEU (0-500) H 02/11/19 00:00 - Impressions Impressions Echocardiogram 02/11/19 08:14 Impressions: LVEF 70-75%, hyperdynamic LV. Indeterminate diastolic function. Normal right ventricular structure and function. No significant valvular dysfunction. No evidence of pulmonary hypertension. Left Ventricular Wall Motion: Rest Echo Findings The apex, apical inferior, mid inferior, basal inferior, apical anterior, mid anterior, basal anterior, apical septal, mid inferior septal, basal inferior septal, apical lateral, mid anterior lateral, basal anterior lateral, mid anterior septal, mid inferior lateral, basal anterior septal and basal inferior lateral calderon were hyperkinetic. Findings: Study Quality * Technically adequate exam. ECG Findings * Atrial fibrillation. Left Ventricle * LVEF 70-75%, hyperdynamic LV. * Normal LV chamber size, wall thickness and systolic function. * Indeterminate diastolic function. Right Ventricle * Normal right ventricular structure and function. Left Atrium * Normal left atrial size. Right Atrium * Normal right atrial size. Interatrial Septum * Interatrial septum not well evaluated. Aortic Valve * Trileaflet aortic valve with normal function. * No aortic stenosis. * No aortic regurgitation. Mitral Valve * Normal mitral valve structure. * No mitral stenosis. * Trace mitral regurgitation. Tricuspid Valve * Normal tricuspid valve structure. * No tricuspid stenosis. * Trace tricuspid regurgitation. * Unable to estimate RVSP due to lack of TR jet. * No evidence of pulmonary hypertension. * Estimated RA pressure is 3 mmHg. Pulmonic Valve * Pulmonic valve is not well visualized. * No pulmonic stenosis. * No pulmonic regurgitation. Aorta * Normally sized aortic root. Pericardium * The pericardium appears normal. IVC * The IVC is not dilated. * > 50% respiratory change Consult Discharge Plan - Plan Referrals: Dakota Tenorio DO [Resident] - 02/15/19 1:00 pm Inge Resendez DO [Partnered Physician] - (Submitted a web request for Dr. Dang office to contact the patient with a hospital follow up. )
[2019-02-12] MEDS: Multivit/Ca/Min/Fe/FA 1 TAB TABLET PO SCH (09:42)
--- NOTE | 2019-02-12 11:05 | Discharge Summary ---
- NOTES TO OUTPATIENT PROVIDER Notes to Outpatient Provider: We will need to follow up with cardiology as outpatient in 1-2 weeks. Date of Encounter: 02/12/19 Time of Encounter: 11:03 - Discharge Diagnosis (1) Atrial fibrillation with RVR Priority: Primary Status: Acute (2) AA (alcohol abuse) Priority: Secondary Status: Acute (3) Marijuana abuse Priority: Secondary Status: Acute (4) DVT prophylaxis Priority: Secondary Status: Acute (5) Elevated troponin Priority: Primary Status: Acute Hospital course: Mr. Millard is a 53 year old male with past medical history of hypertension came in with complain for chest pain while watching TV. CTA was obtained which did not show any PE. Patient was found to have A. fib with RVR on EKG. Electrolyte and TSH was unremarkable except mild hypomagnesemia. He was started on heparin and Cardizem drip. He has history of alcohol abuse however denies any history of withdrawals. He did not appear to be withdrawing from alcohol. Troponin trended down with rate control. Cardiology was consulted. He was continued on heparin drip. Echocardiogram was obtained which showed a hyperdynamic EF of 70- 75, intermediate diastolic function, without any wall motion hypokinesis. Given his [id number] Vasc score of 1 he was discharged with aspirin. He was discharged with Cardizem 240 daily and Lopressor 25 twice a day for rate control. He will follow-up with cardiology outpatient. A. fib likely related to alcohol use. Discharge discussed with: patient, nurse, social work, therapeutic consultant - Time Spent with Patient Total time spent providing and/or coordinating discharge services: Time spent: Greater than 30 minutes (40) - Discharge Medications Prescriptions: New Aspirin Enteric Coated [Aspirin EC] 81 mg PO DAILY 30 Days #[address] Shankartiadaniel BRYANT (24hr) [Cardizem CD] 240 mg PO DAILY 30 Days #30 cap.er.24h Metoprolol [Lopressor] 25 mg PO BID 30 Days #60 tablet Home Medications: Aspirin Enteric Coated [Aspirin EC] 81 mg PO DAILY 30 Days #30 tablet. 02/12/19 [Rx] Diltiazem CD (24hr) [Cardizem CD] 240 mg PO DAILY 30 Days #30 cap.er.24h 02/12/19 [Rx] Metoprolol [Lopressor] 25 mg PO BID 30 Days #60 tablet 02/12/19 [Rx] Allergies/Adverse Reactions: Allergy/AdvReac Type Severity Reaction Status Date / Time Penicillins Allergy Hives, Verified 02/12/19 09:32 Swelling Date of admission: 02/11/19 03:33 Primary care physician: PCP NONE Consults: 02/11/19 08:23 Consult to Cardiology [CONS] Routine Comment: Consulting Provider: Cardiology [place] Reason for Consult: new afib Call Completed: Yes Discharging clinician: Jada Apodaca - Constitutional Vitals: Temp Pulse Resp BP Pulse Ox 98.4 F 96 16 141/98 94 02/12/19 07:13 02/12/19 07:13 02/12/19 07:13 02/12/19 07:13 02/12/19 07:13 Exam: Constitutional: Vitals as noted. Conversant. No Apparent Distress. Well groomed. Respiratory : Clear to auscultation bilaterally. No accessory muscle use, rales, rhonchi or wheezes Cardiovascular : tachycardic, irregular, no murmur, gallop, rubs. No chest wall tenderness GI/Abdominal : Soft, Non-tender, Non-distended, normal bowel sounds, no peritoneal signs. no orgenomegaly or mass appreciated. no hernia. Musculoskeletal: no deformity noted. no edema or cyanosis. warm extremities, pulses palpable and symmetrical in UE/LE. no calf tenderness. Neurological: AO X3, CN II-XII grossly intact, grossly normal motor and sensory exam. no tremors. Skin: No skin rash, lesions or ulcers noted. - Patient Status Disposition: Home, Self-Care Condition: Good - Discharge Instructions Instructions: Atrial Fibrillation (DC) Follow Up With: Dakota Tenorio DO [Resident] - 02/15/19 1:00 pm Inge Resendez DO [Partnered Physician] - (Submitted a web request for Dr. Dang office to contact the patient with a hospital follow up. ) - Diet and Activity Activity: increase activity as tolerated
--- NOTE | 2019-02-12 11:24 | Cardiology Progress Note ---
Date of Encounter: 02/12/19 Time of Encounter: 09:00 Assessment and Plan (1) Atrial fibrillation with RVR Current Visit: Yes Status: Acute Per cardiology: -Presented with precordial chest pain and palpitations. Found to be in A-Fib RVR, new diagnosis. -Currently on heparin gtt and Cardizem gtt at 5mg/hr. HR 100s. -BP tolerating/hypertensive. -[id number] 1 for HTN. On ASA. -Will add oral cardizem and wean cardizem drip to off. -Anticipate cardiology sign off if HR controlled off cardizem drip with oral meds. -Will arrange outpatient follow up. (2) Elevated troponin Current Visit: Yes Status: Acute Per cardiology: -Initial troponin negative, then 0.19, 0.17, 0.1 -Troponin elevation in setting of A-Fib RVR. -Denies chest pain. -ECG with a.fib RVR. -TTE with LVEF 70-75%, hyperdynamic. -On asa, BB, Not on statin due to elevated LFTS. -Demand ischemia, no cardiac rehab consult warranted. -Consider outpatient stress test. (3) AA (alcohol abuse) Current Visit: Yes Status: Acute Per cardiology: -Management per primary team. Discussion w patient/family: The assessment and plan as outlined above was discussed with the patient who expressed understanding and agreement. All questions were answered. Thank you for involving us in the care of your patient. Please call with any questions. Discussed and reviewed with . Subjective Principal diagnosis: a.fib RVR Interval history: Patient denies chest pain. Denies shortness of breath. States he has an appt today that he needs to be discharged to go to. Objective Vital Signs Temperature 98.2 F 02/10/19 23:34 Pulse Rate 97 02/10/19 23:34 Respiratory Rate 22 02/10/19 23:34 Blood Pressure 118/76 02/10/19 23:34 O2 Sat by Pulse Oximetry 98 02/10/19 23:34 Temperature 98.4 F 02/12/19 07:13 Pulse Rate 96 02/12/19 07:13 Respiratory Rate 16 02/12/19 07:13 Blood Pressure 141/98 02/12/19 07:13 O2 Sat by Pulse Oximetry 94 02/12/19 07:13 Oxygen Delivery Oxygen Delivery Room Air General: Conversant, No Apparent Distress HEENT: Atraumatic, Normocephaly, Mucus Membranes Moist Neck: No JVD, Normal carotid pulses Cardiac: Normal S1 and S2, No Murmur, Other (Irregularly irregular) Lungs: Normal Breath Sounds, No Wheeze, Rales, Rhonchi Neuro: Alert and responsive, No focal deficits noted Abdomen: Soft, Non-Tender Skin: No rashes noted on visualized skin Musculoskeletal: No Chest Wall Tenderness Extremities: No Clubbing, No Cyanosis, No Edema, Normal Pulses Results 02/11/19 06:34 02/12/19 01:30 Lab Results Impressions Echocardiogram 02/11/19 08:14 Impressions: LVEF 70-75%, hyperdynamic LV. Indeterminate diastolic function. Normal right ventricular structure and function. No significant valvular dysfunction. No evidence of pulmonary hypertension. Left Ventricular Wall Motion: Rest Echo Findings The apex, apical inferior, mid inferior, basal inferior, apical anterior, mid anterior, basal anterior, apical septal, mid inferior septal, basal inferior septal, apical lateral, mid anterior lateral, basal anterior lateral, mid anterior septal, mid inferior lateral, basal anterior septal and basal inferior lateral calderon were hyperkinetic. Findings: Study Quality * Technically adequate exam. ECG Findings * Atrial fibrillation. Left Ventricle * LVEF 70-75%, hyperdynamic LV. * Normal LV chamber size, wall thickness and systolic function. * Indeterminate diastolic function. Right Ventricle * Normal right ventricular structure and function. Left Atrium * Normal left atrial size. Right Atrium * Normal right atrial size. Interatrial Septum * Interatrial septum not well evaluated. Aortic Valve * Trileaflet aortic valve with normal function. * No aortic stenosis. * No aortic regurgitation. Mitral Valve * Normal mitral valve structure. * No mitral stenosis. * Trace mitral regurgitation. Tricuspid Valve * Normal tricuspid valve structure. * No tricuspid stenosis. * Trace tricuspid regurgitation. * Unable to estimate RVSP due to lack of TR jet. * No evidence of pulmonary hypertension. * Estimated RA pressure is 3 mmHg. Pulmonic Valve * Pulmonic valve is not well visualized. * No pulmonic stenosis. * No pulmonic regurgitation. Aorta * Normally sized aortic root. Pericardium * The pericardium appears normal. IVC * The IVC is not dilated. * > 50% respiratory change Active Medications Aspirin (Aspirin) 81 mg PO DAILY CHRISTIN Stop: 08/14/19 09:01 Last Admin: 02/12/19 09:42 Dose: 81 mg Documented by: Diltiazem HCl (Cardizem Cd) 240 mg PO DAILY [facility] Stop: 08/14/19 09:01 Last Admin: 02/12/19 09:43 Dose: 240 mg Documented by: Lorazepam (Ativan) 1 mg IVP Q1H PRN PRN Reason: Alcohol Withdrawal Stop: 08/13/19 08:32 Metoprolol Tartrate (Lopressor) 5 mg IVP Q6HR PRN PRN Reason: Heart Rate- High Stop: 08/13/19 08:22 Metoprolol Tartrate (Lopressor) 25 mg PO BID [facility] Stop: 08/13/19 11:16 Last Admin: 02/12/19 09:42 Dose: 25 mg Documented by: Multivitamins/Calcium (Thera M Plus) 1 tab PO DAILY [facility]; Protocol Stop: 08/13/19 09:01 Last Admin: 02/12/19 09:42 Dose: 1 tab Documented by: Nicotine (Nicoderm) 21 mg TD DAILY [facility]; Protocol Stop: 08/14/19 05:05 Last Admin: 02/12/19 07:22 Dose: 21 mg Documented by: Laboratory Tests 02/11/19 02/11/19 02/11/19 00:00 08:31 13:52 Creatinine Troponin I 0.03 0.19 H* 0.17 H* 02/12/19 02/12/19 01:30 01:30 Creatinine 0.63 L Troponin I 0.10 H* - Imaging and Cardiology Chest Xray: report reviewed Echo: report reviewed - EKG Interpretation EKG results cardiology: other (Telemetry reviewed with average HR previous 12 hours noted to be 104, a.fib. PVCs noted.) Consult Discharge Plan - Plan Instructions: Atrial Fibrillation (DC) Referrals: Dakota Tenorio DO [Resident] - 02/15/19 1:00 pm Inge Resendez DO [Partnered Physician] - (Submitted a web request for Dr. Dang office to contact the patient with a hospital follow up. ) Prescriptions: Aspirin Enteric Coated [Aspirin EC] 81 mg PO DAILY 30 Days #[address] Negrito BRYANT (24hr) [Cardizem CD] 240 mg PO DAILY 30 Days #30 cap.er.24h Metoprolol [Lopressor] 25 mg PO BID 30 Days #60 tablet
--- NOTE | 2019-02-14 09:28 | Electrocardiograph Report ---
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
== END 2019-02-12 12:05 | disposition home or self-care (01) ==
LOC: EMEROOARM 23:32 → 2NENU 23:32 → SUATTDRO 02-11 03:33 → 2NENU 02-11 06:04
PROVIDERS: ADMIT Pediatrics; ATTEND Internal Medicine